=== PATIENT | male | born 2000 | race Caucasian/White ===

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

== ENCOUNTER 2021-07-07 20:57 | Emergency (ER) | payer OTHER | END 2021-07-07 23:00 | disposition left against medical advice (07) | LOC: FER 20:57 | DX: R07.9 Chest pain, unspecified (principal); Z53.8 Procedure and treatment not carried out for other reasons | CPT/HCPCS: 93005 ==